=== PATIENT | male | born 1940 | race Caucasian/White ===

== ENCOUNTER 2016-09-21 06:53 | Day surgery (SDC) | payer MEDICARE, BC ==
[2016-09-13 17:31] LABS: HEMATOCRIT 40.9 % (40.0-51.0); HEMOGLOBIN 14.3 g/dL (13.6-17.8)
[2016-09-13 18:10] LABS: ASCORBIC ACID (UR NOT ORDER) NEG (NEG); BILIRUBIN, URINE NEGATIVE (NEG); KETONE, URINE NEGATIVE (NEG); LEUKOCYTE ESTERASE(NOT OR NEG (NEG); WBC (NOT ORDERED) (RFLEX) 2 (0-5)
--- NOTE | ~2016-09-21 | OP ---
Record Of Operation [facility] [address] [facility] [place]. [address] NAME: LINA LYNN : 38 STATUS : REG [facility]#: [id number] AGE: 76 ADM/REG DATE : 09/21/16 MR#: [id number] REPORT SERV DATE: 09/21/16 DICTATED BY: JOHN HOLDEN JR. DATE: 09/21/16 REPORT STATUS : Draft TRANSCRIBED BY: ABISAI DATE: 09/21/16 DATE OF PROCEDURE: 09/21/2016 SURGEON: John Holden M.D. PREOPERATIVE DIAGNOSIS: Bladder cancer. POSTOPERATIVE DIAGNOSIS: Bladder cancer. PROCEDURE PERFORMED: Cystoscopy, left retrograde pyelogram, and bladder biopsy. COMPLICATIONS: None. CONSULTATIONS: None. ANESTHESIA: General with a laryngeal mask airway. SPECIMENS: Bladder biopsy from the posterior wall and right lateral wall. INDICATION: Mr. Lynn is a 76-year-old gentleman, who has recently completed BCG therapy for recurrent transitional cell carcinoma of the bladder. He has a history of a right nephroureterectomy for upper tract disease of TCC on the right side. PROCEDURE IN DETAIL: After the patient was identified and proper informed consent was obtained, he was taken to the operating room. General anesthesia was performed without complication using a laryngeal mask airway. He was then prepped and draped in normal sterile fashion in the lithotomy position. Cystoscopic examination of the urethra reveals a normal penile and bulbous urethra. The prostatic urethra was absent. His bladder was examined. He had an erythematous patch on the posterior bladder wall along with on the second area on the right lateral wall. His right ureteral orifice was absent. The left ureteral orifice was in the normal position and normal size. There were no papillary tumors noted. A retrograde pyelogram was performed on the left side, which revealed a normal course and caliber to the collecting system and ureter without evidence of filling defect or other abnormality. Bladder biopsies were then taken two on the posterior bladder wall of the erythematous area and one biopsy taken in the right lateral wall of the second erythematous area that was mentioned. These were taken with the cold cup forceps and cauterized using a Bugbee electrode. The bladder was drained. The patient was awakened in the operating room and transferred to the postanesthesia care in stable condition. I will see him back in one week for pathology results. ALEJANDRA/ABISAI John Holden Jr., M.D. Record Of Operation [facility] [address] [place] [address] NAME: LINA LYNN : 38 STATUS : REG [facility] PAT#: [id number] AGE: 76 ADM/REG DATE : 09/21/16 MR#: [id number] REPORT SERV DATE: 09/21/16 DICTATED BY: JOHN HOLDEN JR. DATE: 09/21/16 REPORT STATUS : Draft TRANSCRIBED BY: ABISAI DATE: 09/21/16 / [id number] CC: Pedro Peñaloza Jr., M.D.
[~2016-09-21 06:53] MED LIST: ASAB PO; CARDCD120 PO; ELIQUIS 5 MG TAB5 MG PO; GLUCCHONDR PO; GLUCOSAMINEPO; MULTIVITAMI1 PO; NORCO1 TA2 PO; PRADAXA150 MG PO; PRIN5 PO; VITAMIN D400 UNI1 PO; ZOCOR10 PO
[2016-09-21 07:23] LABS: BUN (BLOOD UREA NITROGEN) 16 MG/DL (6-23); CALCIUM, SERUM 9.7 MG/DL (8.5-10.4); CHLORIDE, SERUM 110 MMOL/L (96-112); CO2 (CARBON DIOXIDE) 28 MMOL/L (24-34); CREATININE 1.79 MG/DL (0.70-1.30); GFR AFRICAN AMERICAN 41 ML/MIN (>=60); GFR NON AFRICAN AMERICAN 36 ML/MIN (>=60); GLUCOSE, SERUM 89 MG/DL (60-99); SODIUM, SERUM 142 MMOL/L (135-148)
== END 2016-09-21 13:32 | disposition home or self-care (01) ==
LOC: SDC 06:53
PROVIDERS: Urology
PROC: BT1FYZZ Fluoroscopy of Left Kidney, Ureter and Bladder using Other Contrast (ICD-10-PCS; 2016-09-21)
PROC: 0TBB8ZX Excision of Bladder, Via Natural or Artificial Opening Endoscopic, Diagnostic (ICD-10-PCS; principal; 2016-09-21 09:00)
DX: N30.90 Cystitis, unspecified without hematuria (principal); I48.91 Unspecified atrial fibrillation
CPT/HCPCS: 74420; 80048; 81001; 85014; 85018; 88305; 93005; C1758; J2250; J2405; J2710; J3010; Q9967